=== PATIENT | male | born 1950 | race Caucasian/White ===

== ENCOUNTER 2019-06-14 06:10 | Observation (INO) | payer OTHER ==
--- NOTE | 2019-06-14 07:23 | PDOC ---
Attending Attestation - Resident Resident Name: Suellen Menchaca - ED Attending Attestation I have performed the following: I have examined & evaluated the patient, The case was reviewed & discussed with the resident, I agree w/resident's findings & plan, Exceptions are as noted - HPI HPI: 06/14/19 08:58 68yo male with no pmhx with 2 syncopal episodes this week. Pt states he felt lightheaded/dizzy and then would pass out for about 30 seconds. Both were witnessed. Pt states he was at the gas station to get the paper when it happened. States he collapsed -was caught the first time by his friend on saturday. Today he collapsed to the ground. Pt states flu like symptoms all week. Pt states decreased po intake all week. Pt denies cp/sob/palpitations. No abd pain. No n/v/d. No other complaints. 06/14/19 09:01 Pt denies tongue biting, shaking, loss of control of bowel or bladder - Physicial Exam PE: 06/14/19 09:00 Gen: aaox3, nad heart: +s1s2 reg lungs: cta b/l abd: soft, nt/nd +bs ext: no c/c/e neuro: cn ii-xii grossly intact, no focal deficits, pt ambulatory in the ER with a steady gait skin: no external signs of trauma - Medical Decision Making 06/14/19 09:01 a/p: 68yo male with flu like symptoms x 1 week with 2 syncopal episodes -no prodrome -has had decreased po intake -orthostatics were neg in the ER -pt denies any complaints at this time -will send labs, ekg, cxr, head ct -will hydrate -will monitor and reassess -given 2 syncopal episodes pt will need obs 06/14/19 09:06 cxr clear 06/14/19 09:11 glu 196 06/14/19 09:[address] Nguyen who accepts pt to service Heart Score/ECG Review - ECG Intrepretation Comment:: 06/14/19 09:06 sinus at 73, nl axis, nl interval, t wave inversions III which is nonspecific
[2019-06-14] MEDS ORDERED: SODIUM CHLORIDE 0.9% 1000 ML INFUS.BAG IV ONE (07:31)
--- NOTE | 2019-06-14 07:32 | PDOC ---
History of Present Illness - General Chief Complaint: Syncope/Near Syncope Stated Complaint: SYNCOPE,FLU SYMPTOMS Time Seen by Provider: 06/14/19 07:12 - History of Present Illness Initial Comments: Emre Casiano is a 68yo man with a PMH of sclerosing mesenteritis who presents to the ED with 2 episodes of syncope this week, first Saturday now this morning. He had a previous episode about 4 years ago as well. He states that for both recent episodes, he had walked down to the [employer] station to get coffee and a newspaper. He started to feel "overwhelmingly dizzy" for a few seconds and then fainted. He woke about 30 seconds later during both episodes. He denies any injury from the falls. He denies any symptoms associated with the dizziness or prior to fainting including nausea, SOB, chest pain, sweating, palpitations, or sweating. He is unable to determine whether he felt vertigo or lightheadedness due to the brevity of the episodes. On Saturday, Mr Casiano declined any medical treatment but felt that since this was the second episode this week, he should be evaluated. Mr Casiano reports a recent flu-like illness with fever, body aches, and cough for the past week. He says that he has been eating and drinking almost nothing due to feeling sick. Past History - Past Medical History Allergies/Adverse Reactions: Allergies Allergy/AdvReac Type Severity Reaction Status Date / Time No Known Allergies Allergy Verified 06/14/19 06:41 COPD: No Diabetes: Yes Disorders: Yes (sclerosing mesenteritis) HTN: Yes - Immunization History Immunization Up to Date: No - Psycho Social/Smoking Cessation Hx Smoking History: Never smoked Have you smoked in the past 12 months: No Information on smoking cessation initiated: No Hx Alcohol Use: No Drug/Substance Use Hx: No Review of Systems - Review of Systems Comments:: General: + 1wk fevers, no chills, no weight or appetite change, + 1wk malaise HEENT: No changes in vision, no changes in hearing, no congestion, no sore throat CV: No chest pain, no palpitations, no LE edema Pulm: No SOB, + recent cough, no wheezing GI: No nausea or vomiting, no change in bowel habits, no melena : No frequency, no urgency, no dysuria Musc: No back pain, no joint swelling, no recent injury Skin: No rash, no lesions, no erythema Endo: No excessive thirst, no heat/cold intolerance Heme: No unusual bruising or bleeding, no swollen glands Neuro: + syncope, no numbness/tingling, no focal weakness Vasc: No claudication Psych: No recent change in mood, no SI or HI *Physical Exam - Vital Signs Last Vital Signs Temp Pulse Resp BP Pulse Ox 98.1 F 82 16 134/91 97 06/14/19 06:35 06/14/19 06:35 06/14/19 06:35 06/14/19 06:35 06/14/19 06:35 - Physical Exam General: Comfortable, no acute distress HEENT: Atraumatic, PERRL, EOMI, MMM, voice normal, normal neck ROM, no posterior neck tenderness Cards: RRR, no murmur appreciated Pulm: Comfortable on room air, clear to auscultation bilaterally Abd: Soft, nontender, nondistended Ext: Atraumatic. No LE edema. ROM intact. WWP Skin: Normal color, no rashes or lesions Neuro: A&Ox3, CN grossly intact, normal speech, motor/sensory grossly intact and symmetric. No focal deficits Psych: Mood appropriate to situation ED Treatment Course - LABORATORY CBC & Chemistry Diagram: 06/14/19 07:30 06/14/19 07:30 Medical Decision Making - Medical Decision Making 06/14/19 07:15 Emre Casiano is a 68yo man with a PMH of sclerosing mesenteritis who presents to the ED with 2 episodes of syncope this week, Saturday and today. Both episodes were preceded by 10-20 seconds of "intense dizziness," the pt woke without intervention, and he felt fine afterward. He had an episode 4 years ago as well. Mr Casiano decliend medical evaluation earlier in the week but presented today as it was the second episode. He endorses a recent flu-like illness with fever, cough, and decreased PO intake. - True syncope, witnessed episodes. Possible cardiac origin v orthostasis most likely - CBC, CMP, trop, EKG, CXR - IVF - Orthostatic vitals 06/14/19 09:19 - Labs reviewed. Notable for glucose 196; pt updated. Trop negative - EKG w/ NSR, HR 73, normal axis, normal intervals, no t-wave or ST changes - CXR without focal abnormalities - Pt to be taken for CT head and c-spine given multiple falls - Agrees to admission for syncope workup Discussed with Dr Lauro Menchaca PGY2 Discharge - Discharge Information Problems reviewed: Yes Clinical Impression/Diagnosis: Syncope - Admission Yes - Follow up/Referral - Patient Discharge Instructions - Post Discharge Activity
[2019-06-14 08:26] LABS: BASO % 0.3 % (0-2.0); EOS % 1.1 % (0-4.5); HEMATOCRIT 43.8 % (35.4-49); HEMOGLOBIN 14.9 GM/dL (11.7-16.9); LYMPH % 21.3 % (8-40); MCH 30.2 pg (25.7-33.7); MEAN CELL VOLUME 88.6 fl (80-96); MEAN PLT VOLUME 8.4 fl (7.5-11.1); MONO % 6.9 % (3.8-10.2); NEUT % 70.4 % (42.8-82.8); PLATELET COUNT 270 K/MM3 (134-434); RBC 4.94 M/mm3 (4.00-5.60); RDW 12.9 % (11.9-15.9); WHITE BLOOD COUNT 11.6 K/mm3 (4.0-10.0)
[2019-06-14 08:34] LABS: INR 1.13 (0.83-1.09); PROTHROMBIN TIME (PATIENT) 13.3 SEC (9.7-13.0)
[2019-06-14 08:37] LABS: ACTIVATED PTT 31.1 SECONDS (25.2-36.5)
[2019-06-14 08:44] LABS: MAGNESIUM 2.1 mg/dL (1.8-2.4)
[2019-06-14 08:46] LABS: PH,URINE 5.5 (5.0-8.0); URINE APPEARANCE Clear; URINE BILIRUBIN 1+ (NEGATIVE); URINE COLOR Yellow; URINE GLUCOSE (UA) Negative (NEGATIVE); URINE KETONE 1+ (NEGATIVE); URINE LEUK ESTERASE Negative (NEGATIVE); URINE NITRITE Negative (NEGATIVE); URINE PROTEIN 1+ (NEGATIVE); URINE UROBILINOGEN 0.2 mg/dL (0.2-1.0)
[2019-06-14 08:51] LABS: ALBUMIN 3.5 g/dl (3.4-5.0); CALCIUM 9.5 mg/dL (8.5-10.1); CREATININE 1.1 mg/dL (0.55-1.3); POTASSIUM 4.5 mmol/L (3.5-5.1)
--- NOTE | 2019-06-14 09:26 | PN ---
Teaching Attending Note Name of Resident: Raj Andrea ATTENDING PHYSICIAN STATEMENT I saw and evaluated the patient. I reviewed the resident's note and discussed the case with the resident. I agree with the resident's findings and plan as documented. Seen and examined; please see resident note for further historical information. I personally verified all lucio historical information and exam findings. Personally interpreted all imaging and diagnostics and reviewed appropriate consults. I reviewed all labs and vital signs as per resident note and EMR as documented. I agree with the above assessment and plan unless supplemented by myself in the following. Patient is a 68-year-old female with past medical history significant for sclerosing mesenteritis not on any medications, lost to follow-up and does not see primary care regularly. Aside from that, he is known to be overweight with his BMI at 26.9. He presents with syncope. He had similar episode several years ago. He has had URI symptoms and is somewhat dehydrated from that as he has had poor PO intake. He is somewhat dizzy and unsure if there is rotational motion, his symptoms are not completely persistent but he does note them subsequent to URI which is slightly suspicious for vestibular neuritis type picture though not completely fitting the presentation 10 item review of systems completed and is negative aside from as discussed in the subjective data in my own/the resident documentation. VS, labs, imaging reviewed NAD, AAO, resting comfortably in bed. RRR s1/2 no mgr Normal muscle tone, moves all 5 extremities with normal apparent strength Neck is supple, trachea midline, no denise LN Lungs CTAB with sym expansion NT ND +BS no denise organomegaly CN2-12 wnl; no FND NC AT EOMI PERRLA Normal mood, appropriate behavior, euthymic affect No skin breakdown or rashes noted Slight white count at 11.6 with absolute neutrophil count of 8.2, chemistry is practically normal with negligible, negligible hyponatremia of 1 below the lower limit of normal, UA negative for leukoesterase or nitrite, positive protein and ketones. Head CT shows no acute bleed or mass or fracture with no CT evidence of acute infarct. Chest x-ray shows normal AP view of the chest. Flu swab is negative. EKG with QTC of 427 and normal sinus rhythm without any evidence of high degree AV block. Assessment and plan: Patient presents with syncope following several days of URI symptoms. Orthostatics were negative but is unclear if this was done before or after his hydration, we will repeat orthostatic vital signs, give a dose of prednisone to see if this helps with his symptoms as this would be indicated for vestibular neuritis type picture, we will monitor telemetry and check echocardiogram for ruling out any structural abnormalities. No focal neurologic deficits or evidence of high degree AV block's, continue to monitor on the medicine service.
[2019-06-14 09:50] LABS: URINE RBC 3.3 /hpf (0-4)
[2019-06-14 09:51] LABS: EPI CELLS 1.1 /HPF (0-5/HPF); HYALINE CASTS 39.47 /lpf (0-8); URINE BACTERIA 0.7 /hpf (NEGATIVE)
[2019-06-14] MEDS ORDERED: LACTATED RINGERS SOLUTION 1000 ML INFUS.BAG IV ONE (10:49)
[2019-06-14] MEDS ORDERED: predniSONE 20 MG TABLET (UD) PO ONE (10:50)
--- NOTE | 2019-06-14 11:52 | HP ---
CHIEF COMPLAINT: Syncope PCP: HISTORY OF PRESENT ILLNESS: 68 y/o M, pmh of sclerosing mesenteritis, syncope 4 years ago, presents to the ED s/p 2 syncope episodes accompanied by flu like symptoms. 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 As per pt, he only remembers feeling dizzy and waking up right after. He reports a similar episode at the same place yesterday after which he was brought to the ED. Pt also states that he has been feeling flu like symptoms like malaise, rhinnorhea, cough for 1 week with decreased oral fluid and food intake. He has had a similar episode of syncope 4 years ago, during which he did not seek medical evaluation. 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 He denies fevers, chills, n/v,d, headaches, room spinning, tinnitus, ear pain, seizure activity, changes in vision, palpitations, chest pain, numbness or tingling. ER course was notable for: (1) 1L NS (2) CXR neg (3) CT head neg Recent Travel: denies PAST MEDICAL HISTORY: sclerosing mesenteritis, syncope 4 years ago PAST SURGICAL HISTORY: denies Social History: Smoking: denies cigg, THC smoking 20 years go Alcohol: denies Drugs: denies Allergies No Known Allergies Allergy (Verified 06/14/19 06:41) HOME MEDICATIONS: REVIEW OF SYSTEMS CONSTITUTIONAL: Admits: malaise, Absent: fever, chills, diaphoresis, generalized weakness, HEENT: Admits: rhinorrhea, nasal congestion, Absent: throat pain, throat swelling, difficulty swallowing, mouth swelling, ear pain, eye pain, visual changes CARDIOVASCULAR: Absent: chest pain, syncope, palpitations, irregular heart rate, lightheadedness , RESPIRATORY: Absent: cough, shortness of breath, dyspnea with exertion, GASTROINTESTINAL: Absent: abdominal pain, abdominal distension, nausea, vomiting, diarrhea, MUSCULOSKELETAL: Absent: myalgia, arthralgia, joint swelling, HEMATOLOGIC/IMMUNOLOGIC: Absent: easy bleeding, easy bruising, lymphadenopathy, frequent infections NEUROLOGIC: Admits: dizziness Absent: headache, focal weakness or paresthesias, unsteady gait, seizure, PHYSICAL EXAMINATION Vital Signs - 24 hr 06/14/19 06/14/19 06/14/19 06:35 07:30 10:21 Temperature 98.1 F 98.5 F Pulse Rate 82 Pulse Rate [ 78 78 Left] Respiratory 16 18 Rate Blood Pressure 134/91 Blood Pressure 128/78 117/79 [Left] O2 Sat by Pulse 97 99 95 Oximetry (%) GENERAL: Awake, alert, and fully oriented, in no acute distress. Malordous breath, otherwise healthy EYES: Pupils equal, round and reactive to light, extraocular movements intact, sclera anicteric, EARS, NOSE, THROAT: Poor dental hygiene, oropharynx clear without exudates. Moist mucous membranes. NECK: Normal range of motion, LUNGS: Breath sounds equal, clear to auscultation bilaterally. No wheezes, and no crackles. HEART: Regular rate and rhythm, normal S1 and S2 without murmur, rub or gallop. ABDOMEN: Soft, nontender, not distended, normoactive bowel sounds, no guarding, no rebound, no masses. UPPER EXTREMITIES: 2+ pulses, warm, well-perfused. No cyanosis. LOWER EXTREMITIES: 2+ pulses, warm, well-perfused. No calf tenderness. NEUROLOGICAL: Normal speech. Normal gait. SKIN: Warm, dry, normal turgor, Laboratory Results - last 24 hr CBC,CMP WBC 11.6 K/mm3 (4.0-10.0) H 06/14/19 07:30 RBC 4.94 M/mm3 (4.00-5.60) 06/14/19 07:30 Hgb 14.9 GM/dL (11.7-16.9) 06/14/19 07:30 Hct 43.8 % (35.4-49) 06/14/19 07:30 MCV 88.6 fl (80-96) 06/14/19 07:30 MCH 30.2 pg (25.7-33.7) 06/14/19 07:30 MCHC 34.0 g/dl (32.0-35.9) 06/14/19 07:30 RDW 12.9 % (11.9-15.9) 06/14/19 07:30 Plt Count 270 K/MM3 (134-434) 06/14/19 07:30 MPV 8.4 fl (7.5-11.1) 06/14/19 07:30 Absolute Neuts (auto) 8.2 K/mm3 (1.5-8.0) H 06/14/19 07:30 Neutrophils % 70.4 % (42.8-82.8) 06/14/19 07:30 Lymphocytes % 21.3 % (8-40) 06/14/19 07:30 Monocytes % 6.9 % (3.8-10.2) 06/14/19 07:30 Eosinophils % 1.1 % (0-4.5) 06/14/19 07:30 Basophils % 0.3 % (0-2.0) 06/14/19 07:30 Nucleated RBC % 0 % (0-0) 06/14/19 07:30 Sodium 134 mmol/L (136-145) L 06/14/19 07:30 Potassium 4.5 mmol/L (3.5-5.1) 06/14/19 07:30 Chloride 100 mmol/L (98-107) 06/14/19 07:30 Carbon Dioxide 25 mmol/L (21-32) 06/14/19 07:30 Anion Gap 9 MMOL/L (8-16) 06/14/19 07:30 BUN 14.0 mg/dL (7-18) 06/14/19 07:30 Creatinine 1.1 mg/dL (0.55-1.3) 06/14/19 07:30 Est GFR (CKD-EPI)AfAm 78.97 06/14/19 07:30 Est GFR (CKD-EPI)NonAf 68.13 06/14/19 07:30 Random Glucose 196 mg/dL (74-106) H 06/14/19 07:30 Lactic Acid 1.9 mmol/L (0.4-2.0) 06/14/19 07:30 Calcium 9.5 mg/dL (8.5-10.1) 06/14/19 07:30 Magnesium 2.1 mg/dL (1.8-2.4) 06/14/19 07:30 Total Bilirubin 1.0 mg/dL (0.2-1) 06/14/19 07:30 AST 27 U/L (15-37) 06/14/19 07:30 ALT 52 U/L (13-61) 06/14/19 07:30 Alkaline Phosphatase 75 U/L (45-117) 06/14/19 07:30 Creatine Kinase 41 U/L (26-308) 06/14/19 07:30 Troponin I < 0.02 ng/ml (0.00-0.05) 06/14/19 07:30 Total Protein 8.0 g/dl (6.4-8.2) 06/14/19 07:30 Albumin 3.5 g/dl (3.4-5.0) 06/14/19 07:30 TSH 0.63 uIU/ml (0.358-3.74) 06/14/19 07:30 ASSESSMENT/PLAN: 68 y/o M, pmh of sclerosing mesenteritis, syncope 4 years ago, presents to the ED s/p 2 syncope episodes accompanied by flu like symptoms admitted for syncope #Syncope likely 2/2 to Acute vestibular neuritis CT head neg CXR neg Facial CT noncontrast ordered C-spine CT pending UA, UCx Flu swab- negative CBC/CMP, Lipid profile LR 1L Prednisone 60mg #Sclerosing Mesenteritis chronic #DVTppx Lovenox FEN monitor lytes Regular diet LR 1L Dispo: cont prednisone, f/u CT Visit type - Emergency Visit Emergency Visit: Yes ED Registration Date: 06/14/19 Care time: The patient presented to the Emergency Department on the above date and was hospitalized for further evaluation of their emergent condition. - New Patient This patient is new to me today: Yes Date on this admission: 06/14/19 - Critical Care Critical Care patient: No ATTENDING PHYSICIAN STATEMENT I saw and evaluated the patient. I reviewed the resident's note and discussed the case with the resident. I agree with the resident's findings and plan as documented. SUBJECTIVE: OBJECTIVE: ASSESSMENT AND PLAN:
--- NOTE | 2019-06-14 12:19 | EKG ---
Test Reason : Blood Pressure : / mmHG Vent. Rate : 073 BPM Atrial Rate : 073 BPM P-R Int : 166 ms QRS Dur : 086 ms QT Int : 388 ms P-R-T Axes : 028 008 010 degrees QTc Int : 427 ms NORMAL SINUS RHYTHM NORMAL ECG NO PREVIOUS ECGS AVAILABLE Confirmed by WILBERT MONTEIRO MD ([id number]) on 06/14/2019 12:19:45 PM Referred By: Confirmed By:WILBERT MONTEIRO MD
[2019-06-14] MEDS: ENOXAPARIN NA (PORCINE) 40 MG/0.4 ML DISP.SYRIN SQ SCH (12:57)
[2019-06-14 16:02] VITALS: BMI 26.9
[2019-06-14] MEDS ORDERED: FLU VACCINE QUAD 60 MCG/0.5 ML (MDV 19-20) IM ONE (19:00)
[2019-06-15] MEDS: INSULIN SLIDING SCALE (NOVOLOG) 1 VIAL SQ SCH ×2 (07:02→12:25)
[2019-06-15 07:16] LABS: HEMATOCRIT 38.5 % (35.4-49); HEMOGLOBIN 13.6 GM/dL (11.7-16.9); MCH 30.8 pg (25.7-33.7); MCHC 35.4 g/dl (32.0-35.9); MEAN CELL VOLUME 86.9 fl (80-96); MEAN PLT VOLUME 8.5 fl (7.5-11.1); PLATELET COUNT 255 K/MM3 (134-434); RBC 4.42 M/mm3 (4.00-5.60); RDW 12.5 % (11.9-15.9); WHITE BLOOD COUNT 8.2 K/mm3 (4.0-10.0)
[2019-06-15 07:53] LABS: BILIRUBIN,TOTAL 0.3 mg/dL (0.2-1); BLOOD UREA NITROGEN 18.4 mg/dL (7-18); CALCIUM 9.1 mg/dL (8.5-10.1); POTASSIUM 4.3 mmol/L (3.5-5.1); TOT PROT 7.1 g/dl (6.4-8.2)
[2019-06-15 08:50] VITALS: BP 152/96; PULSE 70; TEMP 98.5
[2019-06-15] MEDS: ENOXAPARIN NA (PORCINE) 40 MG/0.4 ML DISP.SYRIN SQ SCH (09:33)
--- NOTE | 2019-06-15 13:18 | PN ---
Teaching Attending Note Name of Resident: Raj Andrea ATTENDING PHYSICIAN STATEMENT I saw and evaluated the patient. I reviewed the resident's note and discussed the case with the resident. I agree with the resident's findings and plan as documented. Seen and examined; please see resident note for further historical information. I personally verified all lucio historical information and exam findings. Personally interpreted all imaging and diagnostics and reviewed appropriate consults. I reviewed all labs and vital signs as per resident note and EMR as documented. I agree with the above assessment and plan unless supplemented by myself in the following. No new complaints, no issues reported 10 item review of systems completed and is negative aside from as discussed in the subjective data in my own/the resident documentation. VS, labs, imaging reviewed NAD, AAO, resting comfortably in bed. RRR s1/2 no mgr Normal muscle tone, moves all 5 extremities with normal apparent strength Neck is supple, trachea midline, no denise LN Poor dentition Lungs CTAB with sym expansion NT ND +BS no denise organomegaly CN2-12 wnl; no FND NC AT EOMI PERRLA Normal mood, appropriate behavior, euthymic affect No skin breakdown or rashes noted Assessment and plan: No further syncopal symptoms. Results are reviewed, cervical spine CT is found to be negative for any acute injuries, head CT is negative. Maxillofacial CT shows multiple abnormalities with bilateral mastoid effusions with periapical lucency involving multiple teeth. He will be referred to dentistry. Discussing the study with radiology. He will likely discharge home with follow-up with ENT , hemodynamics are good he does not have any signs of mastoiditis. Orthostatic vital signs were negative. Full code
--- NOTE | 2019-06-15 13:37 | ECHO ---
Name: NATHEN SILVA Exam:Adult Echocardiogram Study Date: 06/15/2019 08:36 AM Age: 68 yrs Height: 67 in Weight: 200 lb BSA: 2.0 m2 MMode/2D Measurements & Calculations IVSd: 1.1 cm Ao root diam: 2.9 cm LVIDd: 3.7 cm LA dimension: 3.2 cm LVIDs: 2.7 cm LVPWd: 1.0 cm EDV(Teich): 59.5 ml LVOT diam: 2.0 cm ESV(Teich): 27.7 ml LAV (MOD-bp): 50.2 ml RV S Pravin: 14.9 cm/sec Doppler Measurements & Calculations MV E max pravin: 61.1 cm/sec Ao V2 max: 169.7 cm/sec MV A max pravin: 84.4 cm/sec Ao max P.5 mmHg MV E/A: 0.72 MV dec time: 0.19 sec SKIP(V,D): 2.5 cm2 LV V1 max P.0 mmHg PA V2 max: 129.0 cm/sec LV V1 max: 132.4 cm/sec PA max P.7 mmHg Med Peak E' Pravin: 7.5 cm/sec PI Vmax: 126.2 cm/sec Med E/e': 8.1 Lat Peak E' Pravin: 8.9 cm/sec Lat E/e': 6.8 Left Ventricle The left ventricular size, thickness and function are normal. Right Ventricle The right ventricle is grossly normal size. The right ventricular systolic function is normal. Atria Normal left and right atrial size and function. Mitral Valve The mitral valve leaflets appear normal. There is no evidence of stenosis, fluttering, or prolapse. Tricuspid Valve The tricuspid valve is normal. Aortic Valve The aortic valve is normal in structure and function. Pulmonic Valve The pulmonic valve is not well seen, but is grossly normal. Trace pulmonic valvular regurgitation. Great Vessels The aortic root is normal size. Pericardium/Pleura There is no pericardial effusion. Interpretation Summary This was essentially a normal study. KEY\dsedab 06/15/2019 11:31 AM
--- NOTE | 2019-06-15 17:00 | DS ---
Physical Exam: SUBJECTIVE: Patient seen and examined. Pt is afebrile and asymtpomatic. No issues overnight. Pt states he has improved significantly and would like to leave AMA to take care of his car. Pt did not want to wait for imaging results. Denies f/c/n/v/d/sob. OBJECTIVE: Vital Signs Period Temp Pulse Resp BP Sys/Yates Pulse Ox Last 24 Hr 97.7 F-98.7 F 70-88 18-18 119-152/74-96 96-96 PHYSICAL EXAM GENERAL: Awake, alert, and fully oriented, in no acute distress. Malordous breath, otherwise healthy EYES: Pupils equal, round and reactive to light, extraocular movements intact, sclera anicteric, EARS, NOSE, THROAT: Poor dental hygiene, oropharynx clear without exudates. Moist mucous membranes. NECK: Normal range of motion, LUNGS: Breath sounds equal, clear to auscultation bilaterally. No wheezes, and no crackles. HEART: Regular rate and rhythm, normal S1 and S2 without murmur, rub or gallop. ABDOMEN: Soft, nontender, not distended, normoactive bowel sounds, no guarding, no rebound, no masses. UPPER EXTREMITIES: 2+ pulses, warm, well-perfused. No cyanosis. LOWER EXTREMITIES: 2+ pulses, warm, well-perfused. No calf tenderness. NEUROLOGICAL: Normal speech. Normal gait. SKIN: Warm, dry, normal turgor, LABS Laboratory Results - last 24 hr 06/15/19 06/15/19 06/15/19 00:47 05:30 05:30 WBC 8.2 RBC 4.42 Hgb 13.6 Hct 38.5 MCV 86.9 MCH 30.8 MCHC 35.4 RDW 12.5 Plt Count 255 MPV 8.5 Sodium 138 Potassium 4.3 Chloride 107 Carbon Dioxide 24 Anion Gap 8 BUN 18.4 H Creatinine 1.0 Est GFR (CKD-EPI)AfAm 88.61 Est GFR (CKD-EPI)NonAf 76.45 POC Glucometer 335 Random Glucose 243 H Calcium 9.1 Total Bilirubin 0.3 AST 15 ALT 40 Alkaline Phosphatase 63 Total Protein 7.1 Albumin 3.0 L HOSPITAL COURSE: Date of Admission:06/14/19 68 y/o M, pmh of sclerosing mesenteritis, syncope 4 years ago, presents to the ED s/p 2 syncope episodes accompanied by flu like symptoms admitted for syncopal work up. 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 Pt also states that he had been feeling flu like symptoms like malaise, rhinnorhea, cough for 1 week with decreased oral fluid and food intake. He has had a similar episode of syncope 4 years ago, during which he did not seek medical evaluation. 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 Pt was worked up for Syncope 2/2 to acute vestibular neuritis vs dehydration and poor oral intake due to flu like symptoms. Pt was given fluids, and one dose of prednisone 60mg. Pt's symptoms did not return. Pt however left AMA before his Facial CT came back which showed b/l mastoiditis and ECHO normal CT head neg CXR neg Facial CT noncontrast- b/l mastoiditis and periapical lucencies for multiple teeth C-spine CT - negative UCx- now growth Flu swab- negative Date of Discharge: 06/15/19 Minutes to complete discharge: 40 Discharge Summary Problems reviewed: Yes Reason For Visit: SYNCOPE Condition: Good - Instructions Diet, Activity, Other Instructions: You were admitted to the hospital for loss of consciousness. While in the hospital, we evaluated you with lab work, blood work, imaging including a CAT scan of your facial structures. We found that your symptoms may have been caused by dehydration and worsening of your common cold symptoms. We gave you medications and your symptoms improved significantly. Please make sure you are drinking adequate amount of water and eating enough food. Decreased intake of food and water can cause your symptoms to reappear. You can take over the counter Tylenol or Motrin to relieve symptoms of your cold. We also found that your oral hygiene needs to be followed up with a Dentist to prevent infection or abscess formation. Please follow up an appointment with your dentist or the nearest dentist available to you. Please take all your medications as prescribed Please follow up with your primary care physician within 1 week Return to the emergency room, if you experience worsening of your symptoms, fevers, chest pain, abdominal pain or worsening of any of your condition. Disposition: AGAINST MEDICAL ADVICE - Home Medications Comprehensive Discharge Medication List: Ambulatory Orders Cholecalciferol (Vitamin D3) [Vitamin D3 -] 1 tab PO DAILY 06/15/19 Multivitamin [Multiple Vitamins] 1 tab PO DAILY 06/15/19 This patient is new to me today: Yes Date on this admission: 06/15/19 Emergency Visit: Yes ED Registration Date: 06/14/19 Care time: The patient presented to the Emergency Department on the above date and was hospitalized for further evaluation of their emergent condition. Critical Care patient: No - Discharge Referral Referred to [facility] No ATTENDING PHYSICIAN STATEMENT I saw and evaluated the patient. I reviewed the resident's note and discussed the case with the resident. I agree with the resident's findings and plan as documented. SUBJECTIVE: OBJECTIVE: ASSESSMENT AND PLAN:
== END 2019-06-15 13:32 | disposition left against medical advice (07) ==
LOC: JER 06:10 → JERBED 09:26 → J4W 10:33
PROVIDERS: ADMIT Internal Medicine; ATTEND Internal Medicine
PROC: 3E013VG Introduction of Insulin into Subcutaneous Tissue, Percutaneous Approach (ICD-10-PCS; principal; 2019-06-14)
PROC: 3E013GC Introduction of Other Therapeutic Substance into Subcutaneous Tissue, Percutaneous Approach (ICD-10-PCS; 2019-06-14)
PROC: 3E0337Z Introduction of Electrolytic and Water Balance Substance into Peripheral Vein, Percutaneous Approach (ICD-10-PCS; 2019-06-14)
DX: R55 Syncope and collapse (principal); K65.4 Sclerosing mesenteritis; I10 Essential (primary) hypertension; E11.9 Type 2 diabetes mellitus without complications
CPT/HCPCS: 36415; 70450-TC; 70486-TC; 71045-TC-FY; 72125-TC; 80053; 81003; 82550; 82962; 83605; 83735; 84443; 84484; 85025; 85027; 85610; 85730; 87086; 87804; 93005; 93010; 93306-TC; 96372; 99285-25; G0378; J7030